=== PATIENT | female | born 2000 | race African-American/Black ===

== ENCOUNTER 2021-05-07 10:25 | Emergency (ER) | payer MEDICAID ==
[~2021-05-07] VITALS: Ht 167.6 cm; Wt 80.0 kg
[2021-05-07 10:27] VITALS: BP 136/70
[2021-05-07] MEDS ORDERED: BACITRACIN ZINC OINT UDPKT TOP ONE (11:45)
[2021-05-07] MEDS ORDERED: LIDOCAINE HCL/PF 1% 10 MG/ML 5ML VIAL INFIL ONE (11:45)
[2021-05-07] MEDS ORDERED: VISCOUS LIDOCAINE 2% 15 ML UDC MM SCH (11:45)
[2021-05-07] MEDS ORDERED: ACETAMINOPHEN 325MG TABLET PO ONE (11:45)
[2021-05-07] MEDS ORDERED: KETOROLAC 30MG/ML VIAL IM ONE (11:45)
[2021-05-07] MEDS ORDERED: LIDOCAINE HCL 1% 20ML VIAL (Pyxis) INJ INFIL ONE (14:00)
[2021-05-07] MEDS ORDERED: CEPH500T MT (14:36)
== END 2021-05-07 14:47 | disposition home or self-care (01) ==
LOC: ER 10:38
DX: S01.511A Laceration without foreign body of lip, initial encounter (principal); W18.39XA Other fall on same level, initial encounter; Y93.89 Activity, other specified; Y92.89 Other specified places as the place of occurrence of the external cause; Y99.8 Other external cause status
CPT/HCPCS: 99283; J3490